=== PATIENT | male | born 1950 | race Caucasian/White ===

== ENCOUNTER 2021-12-28 15:34 | Emergency (ER) | payer OTHER, SELFPAY ==
[2021-12-28] MEDS ORDERED: Bacitracin 1 PK ONE (18:13)
[2021-12-28] MEDS ORDERED: Boostrix 0.5 ML (Tdap) VIAL (>/=7 yrs of age) ONE (18:14)
== END 2021-12-28 19:12 | disposition home or self-care (01) ==
LOC: NAV ERS 15:34
DX: S60.221A Contusion of right hand, initial encounter (principal); S00.93XA Contusion of unspecified part of head, initial encounter; V89.2XXA Person injured in unspecified motor-vehicle accident, traffic, initial encounter; Z23 Encounter for immunization
CPT/HCPCS: 70450; 72125; 90471; 90715